=== PATIENT | male | born 1970 | race Caucasian/White ===

== ENCOUNTER 2019-08-13 09:10 | Inpatient (IN) | payer BC, SELFPAY ==
[~2019-08-13] VITALS: Ht 170.2 cm; Wt 83.9 kg
[~2019-08-13 09:10] MED LIST: CEFOXITIN SODIUM IV ONE; NS IV ONE
[2019-08-13] MEDS ORDERED: ALVIMOPAN 12 MG CAPSULE PO ONE (09:36)
[2019-08-13] MEDS ORDERED: BUPIVACAINE LIPOSOME/PF 266 MG/20 ML VIAL INFIL ONE (10:03)
[2019-08-13] MEDS ORDERED: LIP10 PO (10:19)
[2019-08-13] MEDS ORDERED: AMLO2.5T2 PO (10:19)
[2019-08-13] MEDS ORDERED: fentaNYL CITRATE 250 MCG/5 ML AMP IV ONE (10:21)
[2019-08-13] MEDS ORDERED: ONDANSETRON HCL 4 MG/2 ML VIAL IVP ONE (10:21)
[2019-08-13] MEDS ORDERED: MIDAZOLAM HCL 5 MG/5 ML VIAL IVP ONE (10:21)
[2019-08-13] MEDS ORDERED: NS IRRIG SOLN 1000 ML IR ONE (10:21)
[2019-08-13] MEDS ORDERED: NEOSTIGMINE METHYLSULFATE 1 MG/ML, 10 ML VIAL IVP ONE (10:21)
[2019-08-13] MEDS ORDERED: PROPOFOL 200MG/ 20ML VIAL (DIPRIVAN) IV ONE (10:21)
[2019-08-13] MEDS ORDERED: LR 1,000 ML IV.SOLN IV ONE (10:21)
[2019-08-13] MEDS ORDERED: GLYCOPYRROLATE 0.2 MG/ML VIAL IJ ONE (10:21)
[2019-08-13] MEDS ORDERED: GLUCAGON,HUMAN RECOMBINANT 1 MG VIAL IV ONE (10:21)
[2019-08-13] MEDS ORDERED: cefOXitin SODIUM 2 GM/VIAL (MEFOXIN) IV ONE (10:21)
[2019-08-13] MEDS ORDERED: ROCURONIUM BROMIDE 10 MG/ML (ZEMURON) IV ONE (10:21)
[2019-08-13] MEDS ORDERED: ISOFLURANE 15 MIN GAS INH ONE (10:21)
[2019-08-13] MEDS ORDERED: HYDROcodone/ACETAMIN 5-325 MG TAB (NORCO/ VICODIN) PO PRN (13:15)
[2019-08-13] MEDS ORDERED: ACETAMINOPHEN 325 MG TABLET PO PRN (13:15)
[2019-08-13] MEDS ORDERED: ONDANSETRON HCL 4 MG/2 ML VIAL IVP PRN ×2 (13:15→13:30)
[2019-08-13] MEDS ORDERED: METOCLOPRAMIDE HCL 10 MG/2 ML VIAL IVP PRN (13:30)
[2019-08-13] MEDS ORDERED: MEPERIDINE HCL/PF 25 MG/ML DISP.SYRIN IVP PRN (13:30)
[2019-08-13] MEDS ORDERED: MIDAZOLAM HCL 2 MG/2 ML VIAL (VERSED) IVP PRN (13:30)
[2019-08-13] MEDS ORDERED: HYDROmorphone 1 MG INJ. 1 MG/ML AMPUL IVP PRN (13:30)
[2019-08-13] MEDS: HYDROmorphone 1 MG INJ. 1 MG/ML AMPUL IVP PRN ×4 (13:40→14:05)
[2019-08-13] MEDS: MORPHINE 4 MG/ML INJ. SYRINGE IVP PRN ×2 (13:50→13:55)
[2019-08-13] MEDS ORDERED: HYDROmorphone 1 MG INJ. 1 MG/ML AMPUL ONE ×2 (13:57→14:24)
[2019-08-13] MEDS ORDERED: MORPHINE 4 MG/ML INJ. SYRINGE ONE (14:15)
[2019-08-13 15:47] VITALS: BP_SYST 129
[2019-08-13 16:37] LABS: HEMATOCRIT 42.1 % (36-54)
[2019-08-13 16:43] LABS: CALCIUM 8.5 mg/dL (8.4-11.0); CREATININE 0.9 mg/dL (0.55-1.30); POTASSIUM 3.5 mmol/L (3.5-5.1)
[2019-08-13] MEDS: HYDROcodone/ACETAMIN 5-325 MG TAB (NORCO/ VICODIN) PO PRN (17:45)
[2019-08-13 20:00] VITALS: BP_SYST 154
[2019-08-13] MEDS: HYDROmorphone 2 MG/ML VIAL IVP PRN (20:31)
[2019-08-13] MEDS: ALVIMOPAN 12 MG CAPSULE PO SCH (22:56)
[2019-08-13] MEDS: FAMOTIDINE PF 20 MG/2 ML VIAL IVP SCH (22:56)
[2019-08-13] MEDS: cefOXitin SODIUM 2 GM in D5W 100 ML IV SCH (22:56)
[2019-08-13] MEDS: LR 1,000 ML IV SCH (23:30)
[2019-08-13] MEDS: D5/0.45 NS 1,000 ML IV SCH (23:33)
[2019-08-14] MEDS: D5/0.45 NS 1,000 ML IV SCH ×3 (00:41→18:41)
[2019-08-14] MEDS: HYDROmorphone 2 MG/ML VIAL IVP PRN ×4 (01:17→22:04)
[2019-08-14 06:52] LABS: BASOPHILS % (AUTO) 0.1 % (0.0-2.0); HEMATOCRIT 41.6 % (36-54); LYMPHOCYTES # (AUTO) 1.1 K/uL (1.0-5.5); LYMPHOCYTES % (AUTO) 14.4 % (20.5-51.5); MEAN CORPUSCULAR HEMOGLOBIN 30 pg (27-31); MEAN CORPUSCULAR HGB CONC 34 % (32-36); MEAN CORPUSCULAR VOLUME 89 fL (79.0-98.0); MONOCYTES # (AUTO) 0.6 K/uL (0.0-1.0); MONOCYTES % (AUTO) 7.4 % (1.7-9.3); NEUTROPHILS % (AUTO) 78.1 % (40.0-70.0); PLATELET COUNT (AUTO) 173 K/uL (130-430); RED BLOOD CELL COUNT(AUTO) 4.67 MIL/uL (4.2-6.2); RED CELL DISTRIBUTION WIDTH 13.6 % (9.0-15.0); WHITE BLOOD COUNT (AUTO) 7.7 K/uL (4.8-10.8)
[2019-08-14 07:23] LABS: ALBUMIN 3.8 g/dL (3.4-4.8); CALCIUM 8.9 mg/dL (8.4-11.0); CREATININE 0.82 mg/dL (0.55-1.30); POTASSIUM 4.2 mmol/L (3.5-5.1); TOTAL BILIRUBIN 0.9 mg/dL (0.0-1.0)
[2019-08-14] MEDS: cefOXitin SODIUM 2 GM in D5W 100 ML IV SCH (09:02)
[2019-08-14] MEDS: ALVIMOPAN 12 MG CAPSULE PO SCH ×2 (09:03→21:46)
[2019-08-14] MEDS: FAMOTIDINE PF 20 MG/2 ML VIAL IVP SCH ×2 (09:03→21:46)
[2019-08-14] MEDS: ENOXAPARIN SODIUM 30 MG/0.3 ML SYRINGE SUBCUT SCH (09:04)
[2019-08-14 09:10] VITALS: BP_SYST 131
[2019-08-14] MEDS: LR 1,000 ML IV SCH ×2 (09:30→18:41)
[2019-08-14] MEDS ORDERED: IOHEXOL 350 mgI/mL, 150 ML INFUS..BTL IV ONE (12:22)
[2019-08-14 13:57] VITALS: BP_SYST 136
[2019-08-14 16:45] VITALS: BP_SYST 150
[2019-08-14] MEDS: METOCLOPRAMIDE HCL 10 MG/2 ML VIAL IVP SCH (17:12)
[2019-08-14 20:00] VITALS: BP_SYST 151
[2019-08-14] MEDS ORDERED: ATORVASTATIN 10 MG TABLET PO SCH (21:00)
[2019-08-14] MEDS ORDERED: amLODIPine BESYLATE 5 MG TABLET PO SCH (21:00)
[2019-08-14] MEDS: amLODIPine BESYLATE 5 MG TABLET PO SCH (21:46)
[2019-08-15] MEDS: METOCLOPRAMIDE HCL 10 MG/2 ML VIAL IVP SCH ×4 (00:15→17:33)
[2019-08-15] MEDS: D5/0.45 NS 1,000 ML IV SCH ×2 (00:16→11:11)
[2019-08-15 01:13] VITALS: BP_SYST 146
[2019-08-15] MEDS: LR 1,000 ML IV SCH ×2 (05:30→17:34)
[2019-08-15] MEDS: HYDROmorphone 2 MG/ML VIAL IVP PRN ×3 (06:49→17:26)
[2019-08-15] MEDS: FAMOTIDINE PF 20 MG/2 ML VIAL IVP SCH ×2 (09:51→21:17)
[2019-08-15] MEDS: amLODIPine BESYLATE 5 MG TABLET PO SCH (09:51)
[2019-08-15] MEDS: ENOXAPARIN SODIUM 30 MG/0.3 ML SYRINGE SUBCUT SCH (09:53)
[2019-08-15] MEDS: ALVIMOPAN 12 MG CAPSULE PO SCH ×2 (10:01→21:17)
[2019-08-15 12:43] VITALS: BP_SYST 128
[2019-08-15 17:18] VITALS: BP_SYST 116
[2019-08-15 20:05] VITALS: BP_SYST 129
[2019-08-15] MEDS ORDERED: ATORVASTATIN 10 MG TABLET PO SCH (21:00)
[2019-08-16] MEDS: METOCLOPRAMIDE HCL 10 MG/2 ML VIAL IVP SCH ×4 (00:08→18:26)
[2019-08-16] MEDS: HYDROmorphone 2 MG/ML VIAL IVP PRN (00:55)
[2019-08-16] MEDS: D5/0.45 NS 1,000 ML IV SCH (05:36)
[2019-08-16 08:00] VITALS: BP_SYST 147
[2019-08-16] MEDS: ALVIMOPAN 12 MG CAPSULE PO SCH (09:42)
[2019-08-16] MEDS: FAMOTIDINE PF 20 MG/2 ML VIAL IVP SCH (09:43)
[2019-08-16] MEDS: amLODIPine BESYLATE 5 MG TABLET PO SCH (09:44)
[2019-08-16] MEDS: ENOXAPARIN SODIUM 30 MG/0.3 ML SYRINGE SUBCUT SCH (09:44)
[2019-08-16 12:44] VITALS: BP_SYST 142
[2019-08-16] MEDS: HYDROcodone/ACETAMIN 5-325 MG TAB (NORCO/ VICODIN) PO PRN ×2 (15:01→18:32)
[2019-08-16 17:07] VITALS: BP_SYST 136
[2019-08-16 18:37] VITALS: BP_SYST 136
[2019-08-16] MEDS ORDERED: ATORVASTATIN 10 MG TABLET PO SCH (21:00)
== END 2019-08-16 19:05 | disposition home or self-care (01) | DRG 982 ==
LOC: SDS 09:10 → SMU 09:11 → SDS 09:51 → SMU 15:48
PROVIDERS: ADMIT Colon & Rectal Surgery; ATTEND Colon & Rectal Surgery
PROC: 0DBN4ZZ Excision of Sigmoid Colon, Percutaneous Endoscopic Approach (ICD-10-PCS; 2019-08-13)
PROC: 0DJD8ZZ Inspection of Lower Intestinal Tract, Via Natural or Artificial Opening Endoscopic (ICD-10-PCS; 2019-08-13)
PROC: 0DBP4ZZ Excision of Rectum, Percutaneous Endoscopic Approach (ICD-10-PCS; principal; 2019-08-13 11:45)
DX: N32.1 Vesicointestinal fistula (principal); K57.32 Diverticulitis of large intestine without perforation or abscess without bleeding; I10 Essential (primary) hypertension; E78.5 Hyperlipidemia, unspecified; N40.0 Benign prostatic hyperplasia without lower urinary tract symptoms; E66.9 Obesity, unspecified; E78.00 Pure hypercholesterolemia, unspecified; R07.89 Other chest pain; Z79.899 Other long term (current) drug therapy; Z82.49 Family history of ischemic heart disease and other diseases of the circulatory system; Z03.818 Encounter for observation for suspected exposure to other biological agents ruled out; M94.0 Chondrocostal junction syndrome [Tietze]
CPT/HCPCS: 36415; 71275; 80048; 80053; 85018-TC; 85025; 87081; 88307; 93005; C1727; C9290; C9803-CS; J0694; J1170; J1610; J1650; J2250; J2270; J2405; J2704; J2710; J2765; J3010; J3490; J7060; J7120; Q9967; U0003-CS